=== PATIENT | female | born 1960 | race Caucasian/White ===

== ENCOUNTER 2018-09-13 11:30 | Emergency (ER) | payer MEDICAID ==
[~2018-09-13] VITALS: Ht 167.6 cm; Wt 73.5 kg
[2018-09-13 11:35] VITALS: BP 156/88
--- NOTE | 2018-09-13 11:40 | NUR ---
BIBA. C/O MAGDALENO X2 DAYS. +N/V X1 TODAY "A LOT YESTERDAY". +DIZZY. STATES NUMBNESS IN HER RIGHT LEG THAT BEGAN THIS MORNING. MEDIAL ABD PAIN X TODAY. HX: HTN
[2018-09-13] MEDS ORDERED: PROCHLORPERAZINE 10 MG/2 ML VIAL IM ONE (12:35)
[2018-09-13] MEDS ORDERED: diphenhydrAMINE 50 MG/ML VIAL IM ONE (12:35)
[2018-09-13] MEDS ORDERED: MECLIZINE 25 MG TAB PO ONE (13:50)
[2018-09-13 14:40] VITALS: BP 138/84
--- NOTE | 2018-09-13 14:40 | NUR ---
Patient discharged with v/s stable. Written and verbal after care instructions given and explained. Patient alert, oriented and verbalized understanding of instructions. Ambulatory with steady gait. All questions addressed prior to discharge. ID band removed. Patient advised to follow up with PMD. Rx of Motrin, Meclizine given. Patient educated on indication of medication including possible reaction and side effects. Opportunity to ask questions provided and answered.
== END 2018-09-13 14:40 | disposition home or self-care (01) ==
LOC: MED 11:30
DX: R51 Headache (principal); R42 Dizziness and giddiness; R11.10 Vomiting, unspecified; I10 Essential (primary) hypertension
CPT/HCPCS: 70450; 96372; 99284; J0780; J1200; J8597